=== PATIENT | female | born 1980 | race Caucasian/White ===

== ENCOUNTER 2017-06-26 07:25 | Inpatient (IN) | payer OTHER ==
[~2017-06-26] VITALS: Ht 172.7 cm; Wt 104.3 kg
--- NOTE | ~2017-06-26 | CO ---
Unit #: [id number] #: [id number] Patient: MURPHY WORRELL [id number] [facility] [address] [facility]. [place], [place] [address] [id number] I MR#: [id number] NAME: MURPHY WORRELL ROOM: 222 Age: 36 Sex: F Admission Date: 06/26/2017 : 1980 Attending Physician: Bee Mann M.D. Primary Care Physician: Jose Copeland M.D. Consultation Date: 06/27/2017 CONSULTATION REPORT REASON FOR CONSULTATION 1. Right upper quadrant pain. 2. Cholelithiasis. HISTORY OF PRESENT ILLNESS Thank you very much for asking us to see Ms. Worrell. She is a 36-year-old white female, who yesterday developed right upper quadrant pain and discomfort. It is a deep pressure pain in the right upper quadrant radiating to the back. It is now mostly gone. She was seen in the emergency room at [facility], where she was found to have on ultrasound cholelithiasis and also a dilated common bile duct 8 mm and elevated AST, ALT, and total bilirubin. The patient has had dark urine recently. No GI bleeding. No or pulmonary symptoms. Weight is stable and appetite is good. ALLERGIES No known medical allergies. MEDICATIONS Please see med rec sheet. PAST SURGICAL HISTORY Tubal ligation. PAST MEDICAL HISTORY No major medical problems. SOCIAL HISTORY No tobacco or alcohol use. REVIEW OF SYSTEMS Negative except for above. IMMUNIZATION STATUS Unknown. FAMILY HISTORY Noncontributory. PHYSICAL EXAMINATION GENERAL: Well-developed, well-nourished white female, in no apparent distress. VITAL SIGNS: Afebrile. Vital signs stable. NECK: Supple. No thyromegaly or adenopathy. Unit #: [id number] #: [id number] Patient: MURPHY WORRELL BACK: No CVA or spinous tenderness. ABDOMEN: Flat, soft, minimally tender in the right upper quadrant. No rebound, peritoneal signs, or masses. EXTREMITIES: No calf tenderness. No erythema. DIAGNOSTIC STUDIES LABORATORY RESULTS: Reveal the patient to have a urinalysis that is negative nitrites, 2+ leukocyte esterase. White count is 6.8 with hemoglobin of 11.8, hematocrit 35.6, MCV is 76.5. CMP shows a total bilirubin of 2.6, which is higher than yesterday 1.1. AST 437, ALT 294. Amylase was 31, lipase 21. IMPRESSION A 36-year-old female with right upper quadrant pain, cholelithiasis, elevated liver function studies. We agree with Dr. Valladares of GI medicine and she needs clearance of her bile duct by endoscopic retrograde cholangiopancreatography. After her duct is cleared, she would need laparoscopic cholecystectomy the next day. All the risks and benefits have been fully explained to the patient in detail regarding laparoscopic cholecystectomy including the risks of bleeding, infection, common bile duct injury, choledochojejunostomy, conversion to an open procedure, transfer, , and other risks. She understands completely and requests to proceed. Dictated by... George Queen/andrea TD: 06/27/2017 13:35 JOB #: [id number] CC: [facility] CONSULTATION REPORT Page 1 of 1 X Jed Vogt MD X CONSULTATION REPORT
--- NOTE | ~2017-06-26 | OR ---
Unit #: [id number] #: [id number] Patient: MURPHY WORRELL [id number] [place] [address] [facility]. [place], [place] [address] [id number] Marielos MR#: [id number] NAME: MURPHY WORRELL ROOM: 222 Date of Procedure: 06/27/2017 Admission Date: 06/26/2017 Surgeon: Ghulam Valladares M.D. : 1980 Attending Physician: Bee Mann M.D. Primary Care Physician: Jose Copeland M.D. OPERATIVE REPORT PROCEDURE PERFORMED Esophagogastroduodenoscopy to descending duodenum; endoscopic retrograde cholangiopancreatography with sphincterotomy; balloon extraction of small common bile duct stones as well as stenting of common bile duct. INDICATIONS FOR PROCEDURE The patient presented with severe right upper quadrant abdominal pain, abnormal LFTs suggestive obstructive jaundice, as well as multiple stones in the gallbladder and dilated common bile duct at 8 mm, undergoing evaluation with upper endoscopy and ERCP. MEDICATIONS Monitored anesthesia. POSTOPERATIVE FINDINGS 1. Small hiatal hernia. 2. Dilated common bile duct at 9 to 10 mm with multiple small 2 to 4 mm defects. 3. Small sphincterotomy was performed. 4. Balloon extraction of small common bile duct stones was carried out successfully. 5. 7 x 7 CBD stent was placed across the common bile duct. 6. PD was not injected. PLAN Continue with antibiotics and pain control. Laparoscopic cholecystectomy for LSA. DESCRIPTION OF PROCEDURE The patient was explained of the procedure, risks, and benefits, risk of pancreatitis was discussed in detail. She was brought into the endoscopy room and laid in the prone position. Monitored anesthesia was given. EGD was done first. Scope was passed down the mouth into esophagus, stomach, duodenum, and distal duodenum. Small hiatal hernia noticed. EGD was otherwise unremarkable. The scope was gently pulled out. She tolerated this part very well. At this time, we placed a side-viewing scope down the mouth into the esophagus and stomach. Ampulla was visualized. After a couple of attempts, I was able to cannulate. Findings have been described above. Small sphincterotomy was made. Balloon extraction of the small stones was Unit #: [id number] #: [id number] Patient: MURPHY WORRELL then carried out successfully and a 7 x 7 stent was placed across the common bile duct under fluoroscopic and endoscopic guidance. The catheter was then withdrawn. The stomach was decompressed. The scope was gently pulled out. She tolerated it well. No major complications were seen. Dictated by... George Quiroz/andrea TD: 06/27/2017 16:57 JOB #: [id number] OPERATIVE REPORT Page 1 of 1 X Ghulam Valladares MD X PROCEDURE OPERATIVE NOTE
--- NOTE | ~2017-06-26 | HP ---
Unit #: [id number] #: [id number] Patient: MURPHY WORRELL [id number] [facility] [address] [facility]. [place], [place] [address] [id number] I MR#: [id number] NAME: MURPHY WORRELL ROOM: 222 Age: 36 Sex: F Admission Date: 06/26/2017 : 1980 Attending Physician: Bee Mann M.D. Primary Care Physician: Jose Copeland M.D. HISTORY AND PHYSICAL CHIEF COMPLAINT Sharp abdominal pain. HISTORY OF PRESENTING ILLNESS Patient is a 36-year-old pretty healthy female who came with the complaint of abdominal pain. According to patient, it started about three hours prior to coming to the ER. It was persistent pain. The level of the pain was 10 out of 10. She did have some nausea. There was no vomiting. She did not take any medication to make it better. Nothing was making it better. Changes in movement did not really make it worse. It was just severe pain. Patient was seen in [facility] ER and is being admitted to the hospital for acute biliary colic. PAST MEDICAL HISTORY 1. Depression. 2. Right rotator cuff injury. PAST SURGICAL HISTORY 1. Tubal ligation. 2. Sinus surgery. SOCIAL HISTORY Patient has no history of smoking, alcohol, or drug abuse. FAMILY HISTORY Patient's mother has a history of coronary artery disease, lupus, and breast cancer, and she has had her gallbladder removed. HOME MEDICATIONS Zoloft 100 mg daily. ALLERGIES No known drug allergies. REVIEW OF SYSTEMS As per History of Presenting Illness. No history of chest pain, no history of shortness of breath, no history of palpitations, no history of dizziness or syncopal episode, and no history of fever, chills, or rigors. PHYSICAL EXAMINATION GENERAL: Patient is lying in bed and does not seem to be in any respiratory distress. VITAL SIGNS: Blood pressure is 141/76, respiratory rate 16, pulse 63, temperature 98.2, and oxygen saturation is 99%. Unit #: [id number] #: [id number] Patient: MURPHY WORRELL HEENT: Head is normocephalic. Eye movements are normal. Pupils are equal and reacting to light. No conjunctival congestion. NECK: Supple. CHEST: Fair air entry. No additional sounds. CARDIOVASCULAR: S1 and S2 positive. Regular rhythm. ABDOMEN: Soft. Tenderness is present in the right upper quadrant. Green's sign is positive. EXTREMITIES: Negative edema. CENTRAL NERVOUS SYSTEM: Awake, alert, and oriented x3. No focal neurological deficit. DIAGNOSTIC STUDIES LABORATORY: WBC 10.1, hemoglobin 12.2, hematocrit 36.1, and platelet count of 276,000. Urinalysis shows 2+ bacteria. Sodium 139, potassium 3.5, chloride 107, BUN 11, and creatinine 0.7. IMAGING: Ultrasound of the gallbladder was done and shows cholelithiasis. Extrahepatic common duct is mildly dilated to about 8 mm. ASSESSMENT Patient is being admitted to medical/surgical unit at [facility] with the diagnoses of: 1. Abdominal pain. 2. Acute biliary colic. 3. Abnormal liver function tests. 4. Cholelithiasis. 5. Urinary tract infection. 6. History of depression. PLAN Admit to med/surg. Dr. Valladares has been consulted. Patient is being started on IV Unasyn 3 grams q.8 hours. Urine culture will be done. Labs will be repeated tomorrow morning. HIDA scan is being ordered. Clear liquids are being started. SCDs will be done. IV Protonix 40 mg daily. The plan of care has been discussed with patient at length. She does verbalize understanding. Dictated by George Jacques/dar TD: 06/26/2017 20:34 JOB #: [id number] HISTORY AND PHYSICAL Page 1 of 1 X Bee Mann MD X HISTORY AND PHYSICAL
--- NOTE | ~2017-06-26 | US67 ---
[facility] A Service of [facility] RADIOLOGY TEXT RESULTS PATIENT: MURPHY WORRELL LOCATION: C2A 222-01 : [birth year] UNIT #: [id number] AGE: [address]: Bee Mann MD SEX: F ORDER DR: [id number] [facility] [address] [facility]. [place], [place] [address] [id number] I MR#: [id number] Acc #: [id number] NAME: MURPHY WORRELL : 1980 SEX: F STUDY DATE/TIME: 06/26/2017 9:28 UNIT: [facility] ROOM: 03828 STUDY DESCRIPTION: US Gallbladder Attending Physician: Bee Mann M.D. Ordering Physician: Jennifer Bravo M.D. Primary Care Physician: Jose Copeland M.D. MEDICAL IMAGING REPORT This report is preliminary unless electronic signature is present EXAM Right upper quadrant ultrasound. CLINICAL HISTORY Five-hour history or right upper quadrant pain. FINDINGS The pancreas is normal. Hepatic parenchymal echotexture is normal and there is no liver mass or intrahepatic ductal dilatation. As on the CT examination, the gallbladder is filled with stones. There is no gallbladder wall thickening or pericholecystic fluid. There is mild dilatation of the extrahepatic common duct to 8 mm. IMPRESSION 1. As seen on the CT examination, there is cholelithiasis. There is no gallbladder wall thickening or pericholecystic fluid. There is no intrahepatic biliary ductal dilatation. 2. The extrahepatic common duct is mildly dilated to about 8 mm. Survey images of the pancreas and right kidney are normal. Dictated by... Harley Goel M.D. THIS IS AN ELECTRONICALLY VERIFIED REPORT Harley Goel M.D. at 06/30/2017 5:03 PM KAILEY/sih TD: 06/26/2017 12:08 JOB #: [id number] [facility] A Service of [facility] RADIOLOGY TEXT RESULTS PATIENT: MURPHY WORRELL LOCATION: C2A 222-01 : [birth year] UNIT #: [id number] AGE: [address]: Bee Mann MD SEX: F ORDER DR: MEDICAL IMAGING REPORT Page 1 of 1 COPY
--- NOTE | ~2017-06-26 | DS ---
Unit #: [id number] #: [id number] Patient: MURPHY WORRELL [id number] [address] [place], [place] [address] [id number] I MR#: [id number] NAME: MURPHY WORRELL ROOM: 222 Age: 36 Sex: F Admission Date: 06/26/2017 : 1980 Discharge Date: 06/29/2017 Attending Physician: Bee Mann M.D. Primary Care Physician: Jose Copeland M.D. DISCHARGE SUMMARY DISCHARGE DIAGNOSES 1. Cholecystitis, status post laparoscopic cholecystectomy. 2. Biliary colic, status post ERCP. DISCHARGE MEDICATIONS 1. Hydrocodone 5/325 at 1 or 2 tablets q.6 hours p.r.n. for pain. 2. Home dose of Zoloft 100 mg p.o. daily. CONSULTS DURING THIS HOSPITAL STAY 1. Dr. Chang, [facility]. 2. Dr. Valladares, Gastroenterology. LABS, DIAGNOSTICS, AND PROCEDURES DURING THIS HOSPITAL STAY 1. Right upper quadrant ultrasound shows cholelithiasis. No intrahepatic biliary duct dilation. The extrahepatic common duct is mildly dilated to about 8 mm. 2. ERCP per Dr. Valladares showed dilation of the common duct at 10 mm. Sphincterotomy was performed and balloon catheter was pulled retrograde through the common duct obtaining stone. Stent was then placed to the common bile duct. 3. Laparoscopic cholecystectomy per General Surgery. HISTORY OF PRESENT HOSPITAL STAY Please refer to H and P done by my colleague for initial presentation on this female. ACTIVE PROBLEMS DIAGNOSED Biliary colic with abdominal pain, status post ERCP, status post stone removal, status post sphincterotomy and stent placement per Dr. Valladares. Cholecystitis, status post evaluation per [facility], status post laparoscopic cholecystectomy, stable. Currently tolerating diet well. Pain well controlled with hydrocodone. Stable to be discharged with outpatient followup with her primary care physician, GI, and General Surgery. Dictated by... Vadim Edgar M.D. OC/am TD: 06/29/2017 21:09 JOB #: [id number] Unit #: [id number] #: [id number] Patient: MURPHY WORRELL DISCHARGE SUMMARY Page 1 of 1 X Vadim Edgar MD X DISCHARGE SUMMARY
--- NOTE | ~2017-06-26 | OR ---
Unit #: [id number] #: [id number] Patient: MURPHY WORRELL [id number] [address] [place], [place] [address] [id number] I MR#: [id number] NAME: MURPHY WORRELL ROOM: 222 Date of Procedure: 06/28/2017 Admission Date: 06/26/2017 Surgeon: Humble Chang M.D. : 1980 Attending Physician: Bee Mann M.D. Primary Care Physician: Jose Copeland M.D. OPERATIVE REPORT PREOPERATIVE DIAGNOSIS Obstructive jaundice. POSTOPERATIVE DIAGNOSIS Obstructive jaundice. PROCEDURE PERFORMED Laparoscopic cholecystectomy. ANESTHESIA General endotracheal anesthesia. ESTIMATED BLOOD LOSS Less than 20 mL. INDICATIONS FOR PROCEDURE A 36-year-old female, who had obstructive jaundice, underwent ERCP with clearance of her common bile duct and placement of a stent. She is ready for cholecystectomy. DESCRIPTION OF PROCEDURE The patient was transported from her hospital room to the operating room, and after induction of general endotracheal anesthesia, she was prepped and draped in usual sterile fashion. SCDs were placed and she was already on routine antibiotics. A 5-mm supraumbilical incision was made. Veress needle was placed. Pneumoperitoneum was created. Then, a 5-mm trocar was placed. Laparoscope was introduced into the peritoneal cavity. Under direct vision, the epigastric and lateral ports were placed. Gallbladder was grasped and elevated. Adhesions were stripped away and the infundibulum was retracted laterally. [place] was dissected out clearly identifying the cystic duct, gallbladder, and cystic duct-common duct junction. The posteriorly placed cystic artery was identified and dissected free. I swept the cystic duct up toward the gallbladder and then placed a clip on the cystic duct centered to gallbladder. Three clips were placed distally and the cystic duct was sharply divided. Posteriorly, the cystic artery was doubly clipped proximally and distally and divided. I then dissected the gallbladder liver bed using cautery dissection. Once it was freed up from its hepatic attachments, it was placed in an EndoCatch bag and brought out through the epigastric port. I then copiously irrigated the operative site. There was good hemostasis. The clips were well positioned and I suctioned the irrigant out. The epigastric fascial defect was closed using a neoClose device and the Unit #: [id number] #: [id number] Patient: MURPHY WORRELL [place] closure was airtight. I then reduced the pneumoperitoneum as I removed laparoscope and trocars. 0.5% Marcaine with epinephrine was infiltrated in each trocar site. The skin was closed with 4-0 Monocryl subcuticular closure and Dermabond skin adhesive. Sponges and needle counts were correct x3. The patient was transported to recovery in stable condition. Findings and postoperative expectations were discussed with her . Dictated by... George Sheehan/andrea TD: 06/28/2017 18:31 JOB #: [id number] OPERATIVE REPORT Page 1 of 1 X Humble Chang MD PROCEDURE OPERATIVE NOTE
--- NOTE | ~2017-06-26 | CR84 ---
[facility] A Service of [facility] RADIOLOGY TEXT RESULTS PATIENT: MURPHY WORRELL LOCATION: C2A 222-01 : [birth year] UNIT #: [id number] AGE: [address]: Bee Mann MD SEX: F ORDER DR: [id number] [facility] [address] [facility]. [place], [place] [address] [id number] I MR#: [id number] Acc #: [id number] NAME: MURPHY WORRELL : 1980 SEX: F STUDY DATE/TIME: 06/27/2017 15:08 UNIT: A ROOM: 222 STUDY DESCRIPTION: CR ERCP Biliary and Pancr SI Attending Physician: Bee Mann M.D. Ordering Physician: Ghulam Valladares M.D. Primary Care Physician: Jose Copeland M.D. MEDICAL IMAGING REPORT This report is preliminary unless electronic signature is present EXAM ERCP 06/27/2017 HISTORY Obstructive jaundice and dilated common bile duct on gallbladder ultrasound 06/26/2017. Cholelithiasis, right upper quadrant abdominal pain since 06/26/2017 FINDINGS ERCP was performed by Dr. Valladares. 5 spot film radiographs of the right upper quadrant were obtained and 1 minute 48 seconds of fluoroscopy time was utilized. Pancreatic duct was not injected. Contrast injection of the biliary tree shows dilatation of the common duct 10 mm. Contrast filled the gallbladder which was packed with gallstones. Small filling defects were seen in the common duct characteristic of stones. Sphincterotomy was performed by Dr. Valladares. Balloon catheter was pulled retrograde through the common duct obtaining stones as per Dr. Valladares. A stent was then placed in the common bile duct. Dictated by... Gianluca Souza M.D. THIS IS AN ELECTRONICALLY VERIFIED REPORT Gianluca Souza M.D. at 06/28/2017 2:14 PM HAMMAD/amarjit TD: 06/28/2017 08:42 JOB #: [id number] MEDICAL IMAGING REPORT [facility] A Service of [facility] RADIOLOGY TEXT RESULTS PATIENT: MURPHY WORRELL LOCATION: A 222-01 : [birth year] UNIT #: [id number] AGE: [address]: Bee Mann MD SEX: F ORDER DR: Page 1 of 1 COPY
[~2017-06-26 07:25] MED LIST: CIPRO PO; IBUPROFEN800 MG PO; NAPROXEN; NO MEDICATIONS; ROBAXIN 750750 M1 DOB; ZOLOFT PO; ZOLOFT100 MG PO
[2017-06-26 08:02] LABS: URINE SOURCE CLEAN CATCH
[2017-06-26 08:12] LABS: URINE APPEARANCE CLOUDY; URINE BILIRUBIN NEG (NEG); URINE BLOOD NEG (NEG); URINE COLOR DK YELLOW; URINE GLUCOSE NEG (NEG); URINE KETONE NEG (NEG); URINE LEUKOCYTE ESTERASE 2+ (NEG); URINE NITRATE NEG (NEG); URINE PH 5.5 (5-8); URINE PROTEIN NEG (NEG); URINE SPECIFIC GRAVITY 1.022 (1.003-1.035)
[2017-06-26 08:15] LABS: CULTURE INDICATED? YES; URINE SQUAMOUS EPITHELIAL CELL MOD /[HPF]
[2017-06-26 08:24] LABS: BASOPHIL% 0.3 % (0-2.5); EOSINOPHIL# 0.1 X10e3 (0-0.7); EOSINOPHIL% 0.6 % (0.0-7.0); HEMATOCRIT 36.1 % (35.0-45.0); HEMOGLOBIN 12.2 gm/dL (12.0-16.0); LYMPHOCYTE# 1.7 X10e3 (1.0-3.5); LYMPHOCYTE% 16.6 % (17.0-45.0); MEAN CELL VOLUME 75.8 FL (83-96); MEAN CORPUSCULAR HEMOGLOBIN 25.7 PG (28-34); MEAN CORPUSCULAR HGB CONC 33.8 g/dL (30-36); MEAN PLATELET VOLUME 7.5 FL (6.5-11.5); MONOCYTE# 1.2 X10e3 (0-1.0); MONOCYTE% 11.7 % (3.0-12.0); NEUTROPHIL# 7.2 X10e3 (1.5-7.1); NEUTROPHIL% 70.8 % (40-75); PLATELET COUNT 276 X10e3 (140-420); RED BLOOD COUNT 4.76 X10e (3.90-5.30); RED CELL DISTRIBUTION WIDTH 15.5 % (11.0-15.5); WHITE BLOOD COUNT 10.1 X10e3 (4.0-10.5)
[2017-06-26 08:26] LABS: DIFF IND NO
[2017-06-26 08:34] LABS: URINE BACTERIA AUWI 2+ (NEGATIVE); URINE MUCUS Y
[2017-06-26 08:52] LABS: ALBUMIN SERUM 3.8 g/dL (3.5-5.0); BILIRUBIN, DIRECT 0.5 mg/dL (0.0-0.2); BILIRUBIN,INDIRECT 0.6 mg/dL (0.0-0.9); BILIRUBIN,TOTAL 1.1 mg/dL (0.2-2.0); BUN/CREATININE RATIO 15.71; CALCIUM SERUM 8.8 mg/dL (8.4-10.2); CREATININE SERUM 0.7 mg/dL (0.6-1.4); GLOM FILT RATE Estimated 110.7 mL/min (>60); POTASSIUM 3.5 mmol/L (3.5-5.1); PROTEIN TOTAL SERUM 7.6 g/dL (6.0-8.3)
[2017-06-26] MEDS ORDERED: ZOLOFT100 MG PO (10:38)
[2017-06-27 05:12] LABS: HEMATOCRIT 35.6 % (35.0-45.0); HEMOGLOBIN 11.8 gm/dL (12.0-16.0); MEAN CELL VOLUME 76.5 FL (83-96); MEAN CORPUSCULAR HEMOGLOBIN 25.4 PG (28-34); MEAN CORPUSCULAR HGB CONC 33.2 g/dL (30-36); MEAN PLATELET VOLUME 7.7 FL (6.5-11.5); RED BLOOD COUNT 4.66 X10e (3.90-5.30); RED CELL DISTRIBUTION WIDTH 15.6 % (11.0-15.5); WHITE BLOOD COUNT 6.8 X10e3 (4.0-10.5)
[2017-06-27 07:10] LABS: ALBUMIN SERUM 3.3 g/dL (3.5-5.0); BILIRUBIN,TOTAL 2.6 mg/dL (0.2-2.0); BUN/CREATININE RATIO 7.14; CALCIUM SERUM 8.6 mg/dL (8.4-10.2); CREATININE SERUM 0.7 mg/dL (0.6-1.4); GLOM FILT RATE Estimated 110.7 mL/min (>60); POTASSIUM 4.2 mmol/L (3.5-5.1); PROTEIN TOTAL SERUM 6.3 g/dL (6.0-8.3)
[2017-06-28 06:20] LABS: HEMATOCRIT 36.2 % (35.0-45.0); HEMOGLOBIN 11.8 gm/dL (12.0-16.0); MEAN CELL VOLUME 77.1 FL (83-96); MEAN CORPUSCULAR HEMOGLOBIN 25.1 PG (28-34); MEAN CORPUSCULAR HGB CONC 32.6 g/dL (30-36); MEAN PLATELET VOLUME 7.8 FL (6.5-11.5); RED BLOOD COUNT 4.7 X10e (3.90-5.30); RED CELL DISTRIBUTION WIDTH 15.7 % (11.0-15.5); WHITE BLOOD COUNT 7.2 X10e3 (4.0-10.5)
[2017-06-28 07:21] LABS: ALBUMIN SERUM 3.5 g/dL (3.5-5.0); BILIRUBIN, DIRECT 0.5 mg/dL (0.0-0.2); BILIRUBIN,TOTAL 1.7 mg/dL (0.2-2.0); BUN/CREATININE RATIO 7.14; CALCIUM SERUM 8.4 mg/dL (8.4-10.2); CREATININE SERUM 0.7 mg/dL (0.6-1.4); GLOM FILT RATE Estimated 110.7 mL/min (>60); POTASSIUM 3.8 mmol/L (3.5-5.1); PROTEIN TOTAL SERUM 6.8 g/dL (6.0-8.3)
[2017-06-29] MEDS ORDERED: HYDROCODON-ACE1 EAC7 PO (07:19)
[2017-06-29 08:19] LABS: HEMATOCRIT 34.9 % (35.0-45.0); HEMOGLOBIN 11.7 gm/dL (12.0-16.0); MEAN CELL VOLUME 76.9 FL (83-96); MEAN CORPUSCULAR HEMOGLOBIN 25.7 PG (28-34); MEAN CORPUSCULAR HGB CONC 33.4 g/dL (30-36); MEAN PLATELET VOLUME 7.7 FL (6.5-11.5); RED BLOOD COUNT 4.54 X10e (3.90-5.30); RED CELL DISTRIBUTION WIDTH 15.9 % (11.0-15.5); WHITE BLOOD COUNT 10.8 X10e3 (4.0-10.5)
[2017-06-29 08:34] LABS: MAGNESIUM 1.8 mg/dL (1.6-3.0); PHOSPHOROUS 3.2 mg/dL (2.5-4.6)
[2017-06-29 08:39] LABS: ALBUMIN SERUM 3.5 g/dL (3.5-5.0); BILIRUBIN,TOTAL 0.8 mg/dL (0.2-2.0); BUN/CREATININE RATIO 8.57; CALCIUM SERUM 8.8 mg/dL (8.4-10.2); CREATININE SERUM 0.7 mg/dL (0.6-1.4); GLOM FILT RATE Estimated 110.7 mL/min (>60); PROTEIN TOTAL SERUM 6.8 g/dL (6.0-8.3)
== END 2017-06-29 20:04 | disposition home or self-care (01) | DRG 418 ==
LOC: CED 07:25 → CEDOF 10:40 → C2A 10:40 → CEDOF 11:24 → CED 11:24 → CEDOF 15:13 → C2A 15:13
PROVIDERS: Emergency Medicine; Internal Medicine; Physician Assistant Medical; Specialist
PROC: 0DJ08ZZ Inspection of Upper Intestinal Tract, Via Natural or Artificial Opening Endoscopic (ICD-10-PCS; 2017-06-27 15:30)
PROC: 0FC98ZZ Extirpation of Matter from Common Bile Duct, Via Natural or Artificial Opening Endoscopic (ICD-10-PCS; 2017-06-27 15:30)
PROC: 0F798DZ Dilation of Common Bile Duct with Intraluminal Device, Via Natural or Artificial Opening Endoscopic (ICD-10-PCS; 2017-06-27 15:30)
PROC: 0FT44ZZ Resection of Gallbladder, Percutaneous Endoscopic Approach (ICD-10-PCS; principal; 2017-06-28 16:30)
DX: K80.71 Calculus of gallbladder and bile duct without cholecystitis with obstruction (principal); N39.0 Urinary tract infection, site not specified; F32.9 Major depressive disorder, single episode, unspecified; Z98.51 Tubal ligation status; R94.5 Abnormal results of liver function studies; K44.9 Diaphragmatic hernia without obstruction or gangrene; E66.9 Obesity, unspecified; Z68.34 Body mass index [BMI] 34.0-34.9, adult
CPT/HCPCS: 36415; 74330; 76705; 80048; 80053; 80076; 81003; 82150; 82248; 83690; 83735; 84100; 84703; 85025; 85027; 87086; 88304; 96361; 96374; 96375; 96376; 99284; C9113; J0295; J1100; J1170; J1610; J1644; J1885; J2250; J2270; J2405; J2765; J3010

== ENCOUNTER → 2017-07-26 | Day surgery (SDC) | payer OTHER ==
[~2017-07-26] MED LIST changes: +HYDROCODON-ACE1 EAC7 PO
--- NOTE | ~2017-07-26 | CR83 ---
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 Ordering Physician: Ghulam Valladares M.D. Primary Care Physician: Jose Copeland M.D. MEDICAL IMAGING REPORT This report is preliminary unless electronic signature is present EXAM ERCP, 07/26/2017 HISTORY Obstructive jaundice and dilated common bile duct on gallbladder ultrasound 06/26/2017. Cholelithiasis, right upper quadrant abdominal pain. ERCP performed for common bile duct stent removal. FINDINGS ERCP was performed by Dr. Valladares. 6 spot film radiographs of the upper abdomen were obtained and 1.21 minutes of fluoroscopy time was utilized. The pancreatic duct was not injected. Surgical clips are seen in the right upper quadrant from prior cholecystectomy. The common bile duct stent was seen outside of the duct, probably within the transverse colon. Contrast injection of the biliary tree was performed demonstrating dilatation of the common bile duct to 9 mm. No obstructing mass or calculus was seen. Dictated by... Gianluca Souza M.D. THIS IS AN ELECTRONICALLY VERIFIED REPORT Gianluca Souza M.D. at 07/27/2017 10:32 AM HAMMAD/eduin TD: 07/27/2017 02:00 JOB #: [id number] MEDICAL IMAGING REPORT Page 1 of 1 COPY
--- NOTE | ~2017-07-26 | OR ---
Unit #: [id number] #: [id number] Patient: MURPHY WORRELL [id number] [address] [place], [place] [address] [id number] O MR#: [id number] NAME: MURPHY WORRELL ROOM: Date of Procedure: 07/26/2017 Admission Date: 07/26/2017 Surgeon: Ghulam Valladares M.D. : 1980 Attending Physician: Ghulam Valladares M.D. Primary Care Physician: Jose Copeland M.D. OPERATIVE REPORT PROCEDURE PERFORMED Endoscopic retrograde cholangiopancreatography. INDICATIONS FOR PROCEDURE The patient with history of common bile duct stones with recent ERCP and stent placement, undergoing ERCP for stent removal. MEDICATIONS Monitored anesthesia. POSTOPERATIVE FINDINGS 1. Stent seen around the area, however, was not inside the duct. 2. Common bile duct was injected, it was dilated to 9 to 10 mm. No filling defects were seen. 3. Balloon extraction carried out. No stones or sludge extracted. 4. Limited EGD exam was within normal limits. PLAN 1. We will get a KUB in 1 week to ensure the stent has been expelled. 2. The patient to call for any symptoms. DESCRIPTION OF PROCEDURE The patient was explained of the procedure risks and benefits along with risks and benefits of anesthesia. She was brought to the endoscopy room. Propofol anesthesia was given. She was laid in the prone position. ERCP side-viewing scope was passed down the mouth into esophagus, stomach, duodenum, and distal duodenum. Ampulla was visualized. No stent was seen extending out of the ampulla. After one or two attempt, I was able to cannulate the bile duct selectively. Injection was carried out. No stones or filling defects were seen. I used a balloon to sweep the duct several times. No stones or sludge were extracted. At this point, we pulled this catheter out. The stomach was decompressed. Limited EGD exam was completed and scope was gently pulled out afterwards. She tolerated it well. No major complications seen. Dictated by... George Quiroz/andrea TD: 07/26/2017 15:05 JOB #: [id number] Unit #: [id number] #: [id number] Patient: MURPHY WORRELL [place] OPERATIVE REPORT Page 1 of 1 X Ghulam Valladares MD PROCEDURE OPERATIVE NOTE
[2017-07-26 07:41] LABS: BASOPHIL% 0.5 % (0-2.5); EOSINOPHIL# 0.4 X10e3 (0-0.7); EOSINOPHIL% 6.2 % (0.0-7.0); HEMATOCRIT 34.5 % (35.0-45.0); HEMOGLOBIN 11.4 gm/dL (12.0-16.0); MEAN CELL VOLUME 75.4 FL (83-96); MEAN CORPUSCULAR HGB CONC 33.2 g/dL (30-36); MEAN PLATELET VOLUME 7.4 FL (6.5-11.5); MONOCYTE# 0.7 X10e3 (0-1.0); MONOCYTE% 10.7 % (3.0-12.0); NEUTROPHIL# 3.7 X10e3 (1.5-7.1); NEUTROPHIL% 53.6 % (40-75); PLATELET COUNT 267 X10e3 (140-420); RED BLOOD COUNT 4.57 X10e (3.90-5.30); WHITE BLOOD COUNT 6.8 X10e3 (4.0-10.5)
[2017-07-26 07:42] LABS: DIFF IND NO
[2017-07-26 08:28] LABS: ALBUMIN SERUM 3.6 g/dL (3.5-5.0); BILIRUBIN,TOTAL 0.3 mg/dL (0.2-2.0); BUN/CREATININE RATIO 18.33; CALCIUM SERUM 8.4 mg/dL (8.4-10.2); CREATININE SERUM 0.6 mg/dL (0.6-1.4); GLOM FILT RATE Estimated 116.4 mL/min (>60); POTASSIUM 3.6 mmol/L (3.5-5.1)
== END | disposition home or self-care (01) ==
LOC: COPS 06:35
PROVIDERS: Internal Medicine
DX: Z46.59 Encounter for fitting and adjustment of other gastrointestinal appliance and device (principal); Z98.51 Tubal ligation status; Z90.49 Acquired absence of other specified parts of digestive tract; Z98.890 Other specified postprocedural states
CPT/HCPCS: 74328; 80053; 82728; 83540; 84466; 84703; 85025; J1610; J2250